=== PATIENT | female | born 2000 | race Two or more races ===

== ENCOUNTER 2022-07-17 09:50 | Emergency (ER) | payer MEDICAID ==
[~2022-07-17] VITALS: Ht 149.9 cm; Wt 71.9 kg
[2022-07-17 10:32] VITALS: BP 124/84
[2022-07-17] MEDS ORDERED: AZIT500T66 PO (11:50)
[2022-07-17] MEDS ORDERED: LIDO2SOL23 MT (11:50)
== END 2022-07-17 12:04 | disposition home or self-care (01) ==
LOC: EDBD 09:50 → ER 09:50
DX: J03.90 Acute tonsillitis, unspecified (principal)